=== PATIENT | male | born 1980 | race American Indian/Alaskan Native ===

== ENCOUNTER 2018-07-20 07:07 | Emergency (ER) | payer SELFPAY ==
[~2018-07-20 07:07] MED LIST: ADRENALIN ONE; D50W (25GM) Syringe IV ONE
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
== END 2018-07-20 08:45 ==
LOC: EDBD → ED 07:07
DX: I46.9 Cardiac arrest, cause unspecified (principal)
CPT/HCPCS: 99285; J0171